=== PATIENT | female | born 1980 | race Caucasian/White ===

== ENCOUNTER 2018-04-01 08:40 | Emergency (ER) | payer OTHER ==
[~2018-04-01] VITALS: Wt 79.4 kg
[~2018-04-01 08:40] MED LIST: BACTRIM DS 8001 TA1 PO; CEPHALEXIN500 M1 PO; NO DAILY MEDS; ZITHROMAX Z PA250 MG PO
[2018-04-01] MEDS ORDERED: BENADRYL ALLERG25 M5 PO (09:19)
[2018-04-01] MEDS ORDERED: AMOXICILLIN500 M2 PO (09:19)
== END 2018-04-01 09:47 | disposition home or self-care (01) ==
LOC: ED 08:40
DX: J32.9 Chronic sinusitis, unspecified (principal); H66.92 Otitis media, unspecified, left ear

== ENCOUNTER 2018-10-27 14:01 | Emergency (ER) | payer OTHER ==
[~2018-10-27] VITALS: Ht 170.1 cm; Wt 81.6 kg
[~2018-10-27 14:01] MED LIST changes: +AMOXICILLIN500 M2 PO; +BENADRYL ALLERG25 M5 PO
[2018-10-27 15:22] LABS: BILIRUBIN NEGATIVE (NEGATIVE); BLOOD NEGATIVE (NEGATIVE); CLARITY SL CLOUDY (CLEAR); COLOR YELLOW (YELLOW); GLUCOSE NEGATIVE (NEGATIVE); KETONE NEGATIVE (NEGATIVE); LEUKO ESTERASE NEGATIVE (NEGATIVE); NITRITE NEGATIVE (NEGATIVE); PH 5.5 (5.0-9.0); SPECIFIC GRAVITY >= 1.030 (1.005-1.030); UROBILINOGEN 0.2 E.U./dl (0.2-1.0)
[2018-10-27 15:32] LABS: MUCOUS TRACE; RBC 0-2 rbc/hpf (0-2); WBC 0-2 wbc/hpf (0-5)
== END 2018-10-27 15:47 | disposition home or self-care (01) ==
LOC: ED 14:01
PROVIDERS: Nurse Practitioner Family
DX: Z11.3 Encounter for screening for infections with a predominantly sexual mode of transmission (principal); N89.8 Other specified noninflammatory disorders of vagina; Z98.51 Tubal ligation status

== ENCOUNTER 2022-07-25 12:21 | Emergency (ER) | payer OTHER ==
[~2022-07-25] VITALS: Ht 162.5 cm; Wt 93.0 kg
[2022-07-25 13:16] LABS: BASO # 0.1 10*3/uL (0.0-0.1); BASO % 0.9 % (0.0-1.0); EOS # 0.4 10*3/uL (0.0-0.4); EOS % 2.8 % (1.0-4.0); HEMATOCRIT 42.4 % (37.0-47.0); LYMPH # 2.9 10*3/uL (1.3-4.4); LYMPH % 22.1 % (27.0-41.0); MEAN CELL VOLUME 85.7 fl (81.0-99.0); MEAN CORPUSCULAR HGB 28.3 pg (27.0-31.0); MEAN PLATELET VOLUME 9.5 fl (9.6-12.3); MONO # 0.6 10*3/uL (0.1-1.0); MONO % 4.8 % (3.0-9.0); NEUT % 69.1 % (47.0-73.0); PLATELET COUNT AUTOMATED 423 10*3/uL (130-400); RED BLOOD COUNT 4.95 10*6/uL (4.10-5.10); RED CELL DISTRI WIDTH 12.6 % (0-14.5)
[2022-07-25 13:30] LABS: ALKALINE PHOSPHATASE 85 U/L (45-117); BUN 13 mg/dl (7-24); CHLORIDE 110 mmol/L (98-107); CREATININE 0.73 mg/dL (0.55-1.02); POTASSIUM 3.7 mmol/L (3.5-5.1); SGOT/AST 25 IU/L (3-35); SGPT/ALT 43 U/L (12-78); SODIUM 141 mmol/L (136-145); TOTAL PROTEIN 7.7 gm/dL (6.4-8.2)
[2022-07-25] MEDS ORDERED: ZANAFLEX4 MG PO (13:52)
[2022-07-25] MEDS ORDERED: NAPROSYN500 MG PO (13:52)
== END 2022-07-25 14:23 | disposition home or self-care (01) ==
LOC: ED 12:21
PROVIDERS: Nurse Practitioner Family
DX: S46.912A Strain of unspecified muscle, fascia and tendon at shoulder and upper arm level, left arm, initial encounter (principal); Z98.51 Tubal ligation status; X50.1XXA Overexertion from prolonged static or awkward postures, initial encounter; Y93.89 Activity, other specified; Y92.89 Other specified places as the place of occurrence of the external cause; Y99.8 Other external cause status

== ENCOUNTER 2022-09-23 05:32 | Emergency (ER) | payer OTHER ==
[~2022-09-23] VITALS: Ht 165.1 cm; Wt 97.5 kg
[~2022-09-23 05:32] MED LIST changes: +NAPROSYN500 MG PO; +ZANAFLEX4 MG PO
[2022-09-23] MEDS ORDERED: MELOXICAM15 MG PO (05:44)
[2022-09-23] MEDS ORDERED: PREDNISONE20 M1 PO (06:01)
[2022-09-23] MEDS ORDERED: CYCLOBENZAPRINE10 MG PO (06:01)
[2022-09-23] MEDS ORDERED: HYDROCODONE-AC1 EAC1 PO (06:01)
== END 2022-09-23 06:22 | disposition home or self-care (01) ==
LOC: ED 05:32
DX: G58.9 Mononeuropathy, unspecified (principal); M25.512 Pain in left shoulder; M62.830 Muscle spasm of back; Z79.899 Other long term (current) drug therapy; Z98.51 Tubal ligation status